=== PATIENT | female | born 1970 | race African-American/Black ===

== ENCOUNTER → 2019-12-03 | Outpatient (CLI) | payer OTHER ==
[2015-01-12 10:02] VITALS: BP 134/74
[~2019-12-03] MED LIST: ALBU2.5V8 IH; HYDR-2163 PO; MELO15TA23 PO; OMEP40CA45 PO
[2019-12-03 15:05] LABS: BASO # 0.1 x10^3/uL (0.0-0.2); BASO % 1 % (0-3); EOS % 0 % (0-3); HEMATOCRIT 34.3 % (36.0-47.0); LYMPH # 0.8 x10^3/uL (1.0-4.8); LYMPH % 12 % (24-48); MEAN CORPUSCULAR HEMOGLOBIN 23 pg (25-35); MEAN CORPUSCULAR HGB CONC 32 g/dL (31-37); MEAN CORPUSCULAR VOLUME 72 fL (79-100); MONO # 0.1 x10^3/uL (0.0-1.1); MONO % 1 % (0-9); NEUT % 86 % (31-73); PLATELET COUNT 367 x10^3/uL (140-400); RED BLOOD COUNT 4.77 x10^6/uL (3.50-5.40); RED CELL DISTRIBUTION WIDTH 17.3 % (11.5-14.5)
[2019-12-03 15:30] LABS: % LYMPHS 8 % (24-48); % SEGS 92 % (35-66)
[2019-12-03 15:32] LABS: ANISOCYTOSIS SLIGHT; HYPOCHROMIA MOD; MICROCYTOSIS MARKED; PLT ESTIMATE ADEQUATE (ADEQUATE); TOXIC GRANULATION SLIGHT; TOXIC VACUOLATION MOD
[2019-12-03 15:32] LABS: BILIRUBIN,URINE NEGATIVE (NEG); CLARITY,URINE CLEAR; COLOR,URINE YELLOW; NITRITE,URINE NEGATIVE (NEG); PROTEIN,URINE NEGATIVE (NEG-TRACE)
[2019-12-03 15:33] LABS: POLYCHROMASIA SLIGHT
--- NOTE | 2019-12-03 15:33 | EKG ---
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
[2019-12-03 15:42] LABS: ALBUMIN 3.8 g/dL (3.4-5.0); ALBUMIN/GLOBULIN RATIO 1.1 (1.0-1.7); CALCIUM 9.1 mg/dL (8.5-10.1); CREATININE 0.8 mg/dL (0.6-1.0); GFR 92.2; POTASSIUM 4.1 mmol/L (3.5-5.1); TOTAL BILIRUBIN 0.2 mg/dL (0.2-1.0); TOTAL PROTEIN 7.4 g/dL (6.4-8.2)
[2019-12-03 15:55] LABS: BACTERIA,URINE FEW /HPF (0-FEW); RBC,URINE RARE /HPF (0-2); SQUAMOUS EPITHELIAL CELL,UR FEW /LPF; WBC,URINE 0 /HPF (0-4)
--- NOTE | 2019-12-03 16:32 | RAD ---
AP and Lateral Views of the Chest 12/03/2019 4:01 PM Indication: Preoperative Comparison: None Findings: There is no focal consolidation or infiltrate identified. The cardiomediastinal silhouette is within normal limits. There is no evidence of pneumothorax or pleural effusion. No acute osseous abnormalities are identified. Impression: No evidence of acute cardiopulmonary process. Electronically signed by: Jonathan Cerna MD (12/03/2019 4:29 PM) [id number]
[2019-12-04 00:07] LABS: ESTRADIOL LEVEL <5.0 pg/mL (.); FSH 27.9 mIU/mL (.)
== END | disposition home or self-care (01) ==
LOC: SURGPAT 14:03
PROVIDERS: ATTEND Obstetrics & Gynecology
DX: Z01.811 Encounter for preprocedural respiratory examination (principal); Z72.0 Tobacco use
CPT/HCPCS: 36415; 71046; 80053; 81001; 82670; 83001; 85007; 85025; 93005